=== PATIENT | female | born 1995 | race Caucasian/White ===

== ENCOUNTER 2017-12-01 09:18 | Inpatient (IN) ==
[2017-12-01] MEDS ORDERED: METHYLERGONOVINE 0.2 MG/ML INJECTION IM PRN (09:30)
[2017-12-01] MEDS ORDERED: SALINE FLUSH 10ml SYRINGE IV PRN (09:30)
[2017-12-01] MEDS ORDERED: MAG-AL + SIM ORAL LIQUID 30ml PO PRN ×2 (09:30→17:30)
[2017-12-01] MEDS ORDERED: CARBOPROST 250 MCG/ML INJECTION IM PRN (09:30)
[2017-12-01] MEDS ORDERED: ACETAMINOPHEN 500 MG TABLET PO PRN ×2 (09:30→17:30)
[2017-12-01] MEDS ORDERED: CALCIUM CARBONATE Chewable 500mg TABLET PO PRN ×2 (09:30→17:30)
--- NOTE | 2017-12-01 09:38 | Anesthesia Preoperative Report ---
Anesthesia Epidural/Spinal Rec - Date and Time Date: 12/01/17 Procedure: Labor Epidural Plan: Epidural - Vital Signs NPO since: 0500 /Para: G: P: Heart Rate: 141 - Medictaions & Allergies Inpatient Medications: Current Medications Acetaminophen (Tylenol) 500 - 1,000 mg PO Q4H PRN PRN Reason: Pain Al Hydroxide/Mg Hydroxide (Maalox Plus) 30 ml PO Q3H PRN PRN Reason: Indigestion Calcium Carbonate (Tums) 500 - 1,000 mg PO Q2H PRN PRN Reason: Indigestion Carboprost Tromethamine (Hemabate) 250 mcg IM O PRN PRN Reason: .Downtime Lactated Ringer's (Lactated Ringers) 1,000 mls @ 999 mls/hr IV .Q1H1M PRN Cefazolin Sodium 1 g/ Sodium (Chloride) 100 mls @ 200 mls/hr IV Q8H СВЕТЛАНА Cefazolin Sodium/Dextrose (Kefzol Premix (Mc Only)) 2 gm in 50 mls @ 100 mls/ hr IV O ONE Stop: 12/01/17 10:29 Methylergonovine Maleate (Methergine) 0.2 mg IM O PRN Misoprostol (Cytotec) 800 mcg TN ONCE PRN Sodium Chloride (Iv Flush) 10 - 80 ml IV PRN PRN PRN Reason: Flushing Allergies/Adverse Reactions: Allergies Allergy/AdvReac Type Severity Reaction Status Date / Time penicillin Allergy Unknown Uncoded 07/04/16 12:43 - Home Medications Home Medications: Home Medications Medication Instructions Recorded Confirmed Type NO CURRENT HOME MEDS #0 05/19/15 History Mupirocin Cream [Bactroban 2% 1 applic PO TID 5 Days #1 tube 07/04/16 Rx Cream] cephALEXin [Cephalexin] 1 cap PO QID 7 Days #28 cap 07/04/16 Rx - Medical History Respiratory: Reports: Other (cold a couple weeks ago) Gastrointestional: Reports: Gastroesophageal Reflux Disease - Surgical History Anesthesia Reactions: None Hx Family Anesthesia Reaction: No History of Motion Sickness: No - Social History Smoking Status: Never smoker Second Hand Exposure: No Substance Use Type: does not use Alcohol Intake Frequency: does not drink Hx Chewing Tobacco Use: No - Physical Exam Respiratory Exam: lungs clear, bilateral breath sounds equal Cardiovascular Exam: regular rate and rhythm - Airway Assessment Mallampati Score: II TMD: 3 Fingerbreadths Neck Extension: good Overall Assessment: no airway concerns - ASA ASA Score: 2 - Discussion Discussion: Discussed risks/options/alternatives of anesthesia and questions answered. Patient consents. Nursing pain assessment noted. Anesthesia Discussion: family member Attestation Statement: Prior to the delivery of any anesthetic medication, I examined the patient, developed the plan, obtained the patient's consent and discussed the risk and benefits of the procedure with the patient/guardian.
[2017-12-01] MEDS: LR 1,000 ML IV PRN ×3 (09:52→16:06)
[2017-12-01] MEDS ORDERED: CEFAZOLIN PREMIX (MC ONLY) 2 GM/50 ML BAG IV ONE (10:00)
[2017-12-01 10:03] VITALS: BMI 26.3
[2017-12-01] MEDS ORDERED: ROPIVACAINE 1% 10MG/ML INJ 200 MG, SUFentanil 50 MCG in NS 100 ML EPI PRN (13:49)
[2017-12-01] MEDS ORDERED: NALOXONE 0.4 MG/ML INJECTION IVP PRN (13:49)
[2017-12-01] MEDS ORDERED: ONDANSETRON 4 MG/2 ML INJECTION IVP PRN (13:49)
[2017-12-01] MEDS ORDERED: DiphenhydrAMINE 50 MG/ML INJECTION IVP PRN (13:49)
[2017-12-01] MEDS ORDERED: LIDOCAINE 2%/EPI 1:200,000 20ml SDV PF ONE (13:50)
[2017-12-01] MEDS ORDERED: OXYTOCIN DRIP 30 UNIT/500 ML ML IV SCH (17:30)
[2017-12-01] MEDS ORDERED: DiphenhydrAMINE 25 MG CAPSULE PO PRN (17:30)
[2017-12-01] MEDS ORDERED: HYDROCORTISONE 2.5% CREAM 30gm RECTALLY PRN (17:30)
--- NOTE | 2017-12-01 17:30 | OB/GYN Procedure Note ---
Delivery date: 12/01/17 Procedure: Delivery monitor: external FHT, external uterine Route of delivery: Episiotomy description: None Laceration description: Vaginal - 1st Degree Delivery repair: vicryl, chromic Anesthesia type: Epidural Disposition: floor - Baby 1 gender: Male presentation: Vertex position: Vertex-by exam Placenta delivery description: Spontaneous cord vessel description: 3 Vessels at 1 minute: 8 at 5 minutes: 9
[2017-12-01] MEDS ORDERED: CEFAZOLIN 1 G in NS 100 ML IV SCH (18:00)
[2017-12-01] MEDS: HYDROCODONE/APAP 5mg/325mg TABLET PO PRN (18:51)
--- NOTE | 2017-12-01 18:59 | Labor and Delivery Note ---
DATE OF DELIVERY 12/01/2017 NARRATIVE There was a spontaneous vaginal delivery of a viable male in cephalic presentation with Apgars of 8/9. Infant name "Keaton Calvin." There was spontaneous delivery of the placenta which was noted to be intact with a three-vessel cord. No nuchal cords were noted at the time of delivery. Amniotic fluid was noted to be clear. No terminal mec. There were bilateral periurethral first-degree lacerations that were repaired with 2-0 chromic and a first-degree left vaginal sidewall that was repaired with 2-0 Vicryl. Estimated blood loss was 200 mL. The patient was taken to the floor in stable condition. Parvin presented to the office this morning with complaints of regular painful contractions and was noted to be 5 cm dilated. She was then sent to Maternal/ Child where she was checked and continued to contract. She received epidural anesthesia. She was noted to make cervical change. She had artificial rupture of membranes and clear fluid was noted at that time. She continued to progress at a normal pace throughout the day and was noted to be complete and +2 station at 3:45. She labored down for approximately 45 minutes and then pushed for approximately 13 minutes and delivered vaginally without difficulty. FRANCISCO
[2017-12-01] MEDS: IBUPROFEN 800 MG TABLET PO PRN (20:09)
[2017-12-02] MEDS: HYDROCODONE/APAP 5mg/325mg TABLET PO PRN ×5 (01:38→23:33)
[2017-12-02] MEDS: IBUPROFEN 800 MG TABLET PO PRN ×3 (05:56→22:40)
--- NOTE | 2017-12-02 08:28 | OB/GYN Progress Note ---
OB-PP Progress Note - General PPD1 Maternal Group B Strep: Positive Maternal Rh: positive Maternal Rubella Status: Immune - Subjective Date: 12/02/17 Lochia: Minimal Pain: controlled Voiding: voiding - Objective Vital Signs: Last Vital Signs Temp 98.1 F 12/02/17 05:45 Pulse 45 L 12/02/17 05:45 Resp 18 12/02/17 05:45 BP 144/76 H 12/02/17 05:45 Pulse Ox 98 12/02/17 05:45 Urine Output: good General: alert and oriented Abdomen: fundus firm, non-tender Extremities: non-tender Laboratory: Laboratory Results - last 24 hr 12/01/17 12/01/17 09:44 09:44 WBC 11.3 H RBC 3.74 L Hgb 12.0 Hct 34.2 L MCV 91.4 MCH 32.1 MCHC 35.1 RDW Std Deviation 40.2 Plt Count 140 MPV 10.4 Turbidity < 20 Sodium 140 Potassium 4.4 Chloride 111 H Carbon Dioxide 20 L Anion Gap 9 BUN 10.0 Creatinine 0.8 Estimated Creat Clear 122 GFR Calculation 90 BUN/Creatinine Ratio 13 Glucose 84 Calculated Osmolality 267 Calcium 8.8 Total Bilirubin 0.30 Icterus Index < 2 AST 30 ALT 17 Alkaline Phosphatase 163 H Total Protein 7.0 Albumin 3.6 Globulin 3.4 Albumin/Globulin Ratio 1.1 Specimen Hemolysis < 15 - Assessment Assessment: , GBS positive - Plan Plan: routine care
[2017-12-02] MEDS: PRENATAL VITAMIN TABLET PO SCH (09:29)
[2017-12-02] MEDS: DOCUSATE CALCIUM 240 MG CAPSULE PO SCH (09:29)
[2017-12-02 13:34] VITALS: RESP 16
--- NOTE | 2017-12-02 15:46 | Anesthesia Postoperative Note ---
- Date and Time Date: 12/02/17 Time: 15:45 - Status Patient Participated in Evaluation: Patient Participated in Person Vital Signs: Temperature 97.6 F 12/02/17 13:15 Pulse Rate 54 L 12/02/17 13:15 Respiratory Rate 16 12/02/17 13:15 Blood Pressure 143/83 H 12/02/17 13:15 Pulse Oximetry 99 12/02/17 13:15 Respiratory Function: Airway Patent Cardiovascular Function: Regular Pulse Mental Status: Alert and Oriented Pain Intensity: 0 Hydration: Taking PO Fluids Nausea/Vomiting: None Complications During Recover: None Apparent - Follow-Up Instructions Instructions: Per Surgeon
[2017-12-03] MEDS: IBUPROFEN 800 MG TABLET PO PRN ×2 (06:41→14:15)
[2017-12-03] MEDS: HYDROCODONE/APAP 5mg/325mg TABLET PO PRN (06:41)
[2017-12-03] MEDS: PRENATAL VITAMIN TABLET PO SCH (09:00)
[2017-12-03] MEDS: DOCUSATE CALCIUM 240 MG CAPSULE PO SCH (09:00)
[2017-12-03 14:45] VITALS: BP 143/84; PULSE 66; TEMP 98.7; O2SAT 99
== END 2017-12-03 15:03 | disposition home or self-care (01) | DRG 775 ==
LOC: MC 09:18
PROVIDERS: ADMIT Obstetrics & Gynecology; ATTEND Obstetrics & Gynecology